=== PATIENT | male | born 2000 | race Caucasian/White ===

== ENCOUNTER 2021-10-15 22:16 | Emergency (ER) | payer BC ==
[2021-10-15 23:21] LABS: #Lymphocytes 1.5 thou/uL (1.20-3.40); #Monocytes 0.5 thou/uL (0.11-0.59); #Neutrophils 4.4 thou/uL (1.40-6.50); %Basophils 0.7 % (0.0-1.0); %Eosinophils 0.6 % (0.0-10.0); %Lymphocytes 23.5 % (21.0-51.0); %Monocytes 7.1 % (0.0-10.0); %Neutrophils 68.1 % (42.0-75.0); Hemoglobin 17.4 g/dL (14.0-18.0); Mean Corpuscular HGB CONC 35.9 g/dL (32.0-36.0); Mean Corpuscular Hemoglobin 33.7 pg (27.0-31.0); Mean Corpuscular Volume 93.9 fL (78.0-98.0); Mean Platelet Volume 8.5 fL (7.4-10.4); Platelet Count 191 thou/uL (130-400); RBC Distribution Width 11.6 % (11.5-14.5); Red Blood Cell (RBC) Count 5.16 mill/uL (4.70-6.10); White Blood Cell (WBC) Count 6.5 thou/uL (4.8-10.8)
[2021-10-15 23:32] LABS: Bilirubin Negative (Negative); Blood, Urine Negative (Negative); Clarity Turbid (Clear); Glucose, Urine (Dipstick) Normal (Negative); Ketone, Urine Negative (Negative); Leukocyte Negative Leu/uL (Negative); Nitrite Negative (Negative); Protein, Urine (Dipstick) Negative (Neg-Trace); Specific Gravity, Urine 1.009 (1.002-1.036); Urobilinogen Normal mg/dL (Less than 2)
[2021-10-16 00:28] LABS: Albumin 4.5 g/dL (3.5-5.0)
[2021-10-16 00:29] LABS: Chloride 104 mmol/L (98-107)
[2021-10-16 00:30] LABS: Calcium 9.3 mg/dL (7.8-10.44); Potassium 4.2 mmol/L (3.5-5.1); Sodium 138 mmol/L (136-145)
[2021-10-16 00:31] LABS: Globulin 2.9 g/dL (2.4-3.5); Glucose 98 mg/dL (70-105); Protein, Total 7.4 g/dL (6.0-8.3)
[2021-10-16 00:32] LABS: Anion Gap 12 mmol/L (10-20); Carbon Dioxide 26 mmol/L (22-29)
[2021-10-16 00:33] LABS: Bilirubin, Total 1.1 mg/dL (0.2-1.2)
[2021-10-16 00:34] LABS: Alkaline Phosphatase 59 U/L (40-110); Calc. Creatinine Clearance 0 mL/min (70-130)
[2021-10-16 00:35] LABS: BUN (Urea Nitrogen) 10 mg/dL (8.9-20.6)
[2021-10-16 00:36] LABS: AST (SGOT) 18 U/L (5-34)
[2021-10-16 00:37] LABS: ALT (SGPT) 24 U/L (8-55); Lipase 27 U/L (8-78); Magnesium 2.4 mg/dL (1.6-2.6)
[2021-10-16 00:38] LABS: CK (CPK) 72 U/L (30-200)
== END 2021-10-16 00:57 | disposition home or self-care (01) ==
LOC: ERS 22:16
DX: R00.2 Palpitations (principal); F17.210 Nicotine dependence, cigarettes, uncomplicated
CPT/HCPCS: 36415; 71045; 80053; 81003; 82550; 83690; 83735; 83880; 84443; 84484; 85025; 85379; 93005